=== PATIENT | female | born 1955 | race Caucasian/White ===

== ENCOUNTER → 2019-01-21 15:04 | Outpatient (CLI) | payer MEDICARE, SELFPAY ==
--- NOTE | 2019-01-21 | DI.US.S_ITS ---
PROCEDURE: US RENAL COMPLETE INDICATIONS: CHRONIC KIDNEY DISEASE STAGE 3 TECHNIQUE: Real-time scanning was performed of the kidneys and bladder, with image documentation. COMPARISON: None. FINDINGS: Kidneys: Kidneys are normal in size. Right kidney measures 11.5 cm long; left kidney measures 11.2 cm long. Right renal cortical thickness is 0.8; left renal cortical thickness is 1.4 cm. Renal cortical echotexture is normal. No hydronephrosis or nephrolithiasis. No suspicious solid mass lesions. Bladder: Pre-void bladder volume is 81 mL. Post-void residual is 68 mL. Pre-void images demonstrate no intraluminal masses or stones. On pre-void images, the right ureteral jet noted with color Doppler interrogation. (Of note, ureteral jets may not be detectable in up to 25% of cases due to insufficient differences in specific gravity between ureteral and bladder urine). Miscellaneous: No free pelvic fluid. IMPRESSION: No hydronephrosis. 68 cc post void residual. Dictated by: Jh Franklin M.D. on 01/21/2019 at 16:49 Approved by: Jh Franklin M.D. on 01/21/2019 at 16:51
== END ==
PROVIDERS: PCP Family Medicine; Visit Provider Student in an Organized Health Care Education/Training Program
DX: N18.3 Chronic kidney disease, stage 3 (moderate) (principal)
CPT/HCPCS: 76770

== ENCOUNTER → 2019-09-10 07:40 | Outpatient (CLI) | payer MEDICARE, SELFPAY ==
[2019-09-10 08:55] LABS: Alanine Aminotransferase 26 IU/L (<35); Aspartate Aminotransferase 36 IU/L (14-36); Cholesterol 128 mg/dL (140-199); Triglycerides 100 mg/dL (35-150)
[2019-09-10 12:33] LABS: HDL Cholesterol 64 mg/dL (40-60); LDL Cholesterol Calculated 44 mg/dL (<100)
== END ==
PROVIDERS: PCP Internal Medicine; Referring Provider Internal Medicine; Visit Provider Internal Medicine
DX: E78.5 Hyperlipidemia, unspecified (principal)
CPT/HCPCS: 36415; 80061; 84450; 84460

== ENCOUNTER → 2020-02-14 14:49 | Outpatient (CLI) | payer MEDICARE, SELFPAY ==
--- NOTE | 2020-02-14 | DI.ECHO.S_ITS ---
[facility]---------+ [facility] +---------+ : : [address] : [place] : : : : [id number] : : : : Phone: [phone] Echocardiogram Report + + :Name: NESSA ANDRES Study Date: 02/14/2020 Height: 63 in : :[facility] Exam Location: IS Weight: 220 lb : : Gender: Female BSA: 2.0 m2 : :: 1955 Age: 65 yrs BP: 147/87 mmHg: :Reason For Study: Mitral Valve- Regurgitation : :Ordering Physician: Emeterio Conti M.D. : :Александрiwal Performed By: Bridget Page : + + Interpretation Summary The left ventricle is mildly dilated. The ejection fraction is estimated to be 55-60%. There has been no significant change in LV EF since the previous exam. The right ventricle is normal in size and function. There is mild mitral regurgitation. Compared to the prior echo study, there has been a decrease in the severity of mitral regurgitation. There is mild tricuspid regurgitation. Compared to the prior echo exam, there has been no change in TR severity. The right ventricular systolic pressure is estimated to be at least 31 mmHg based on an estimated right atrial pressure of 8 mm Hg. Procedure: A two-dimensional transthoracic echocardiogram with color flow and Doppler was performed. The study quality was technically adequate. Comparison is made with the echocardiogram of 07/06/2016. The heart rate ranged between 55-70 bpm during the study. The patient had frequent PVCs during the exam. The patient was in normal sinus rhythm during the exam. Left Ventricle: The left ventricle is mildly dilated. There is no thrombus. The ejection fraction is estimated to be 55-60%. There has been no significant change since the previous exam. There is a significant dyssynchronous contraction pattern, consistent with a conduction abnormality. Diastolic function could not be accurately assessed due to unobtainable data. Right Ventricle: The right ventricle is normal in size and function. Atria: The left atrium is severely dilated. The left atrium has significantly increased in size since the prior echo exam. The right atrium is mildly dilated. There is no Doppler evidence for an interatrial shunt. Mitral Valve: The mitral valve leaflets appear mildly thickened, but open well. There is mild mitral annular calcification. The mitral valve chordae are thickened and/or calcified. There is mild mitral regurgitation. Compared to the prior echo study, there has been a decrease in the severity of mitral regurgitation. Aortic Valve: The aortic valve is trileaflet. The aortic valve opens well. There is no aortic valve stenosis. No aortic regurgitation is present. Tricuspid Valve: The tricuspid valve is normal. There is mild tricuspid regurgitation. The right ventricular systolic pressure is estimated to be at least 31 mmHg based on an estimated right atrial pressure of 8 mm Hg. Compared to the prior echo exam, there has been no change in TR severity. Pulmonic Valve: The pulmonic valve is not well visualized. There is mild pulmonic regurgitation. Great Vessels: The aortic root is normal size. The ascending aorta is normal in size. The pulmonary artery is not well visualized, but is probably normal size. The IVC is dilated (diameter is greater than 2.1 cm) yet it collapses greater than 50% with a sniff. This suggests a right atrial pressure of 8 mm Hg. Pericardium/ Pleura There is no pericardial effusion. There is no pleural effusion. MMode/2D Measurements & Calculations LVIDd: 5.7 cm LVOT diam: 2.2 cm LVIDs: 4.0 cm Ao root diam: 3.3 cm FS: 29.8 % asc Aorta Diam: 3.3 cm IVSd: 1.0 cm LVPWd: 0.77 cm LV malone. diameter/BSA (cm/m^2): 2.8 LV sys. diameter/BSA (cm/m^2): 2.0 LA A2 area: 27.8 cm2 RA long axis: 5.3 cm LA A4 area: 25.7 cm2 RA area: 19.6 cm2 LA length (vol): 5.9 cm RA vol: 62.3 ml LA vol: 102.8 ml RA : 30.9 ml/m2 LA vol index: 51.0 ml/m2 IVC diam: 2.4 cm RVD1 (basal): 3.8 cm TAPSE: 2.0 cm Doppler Measurements & Calculations Ao V2 max: 135.5 cm/sec LVOT Max Russel: 105.9 cm/sec Ao V2 mean: 91.2 cm/sec LV V1 max P.5 mmHg Ao max P.3 mmHg LV V1 VTI: 24.2 cm Ao mean P.7 mmHg DEVI(I,D): 3.1 cm2 Ao V2 VTI: 30.6 cm DEVI(V,D): 3.1 cm2 sev ratio: 0.79 DEVI indexed to BSA (cm^2/m^2): 1.5 TR max russel: 240.8 cm/sec SV(LVOT): 94.8 ml TR max P.3 mmHg PA V2 max: 91.5 cm/sec PA V2 mean: 63.5 cm/sec PA mean P.8 mmHg PA Accel Time: 0.07 sec Reading Physician:12:46 PM
== END ==
PROVIDERS: PCP Internal Medicine; Referring Provider Internal Medicine Cardiovascular Disease; Visit Provider Internal Medicine Cardiovascular Disease
DX: I08.1 Rheumatic disorders of both mitral and tricuspid valves (principal)
CPT/HCPCS: 93306

== ENCOUNTER → 2020-04-27 12:51 | Outpatient (CLI) | payer MEDICARE, SELFPAY ==
--- NOTE | 2020-04-27 12:54 | DI.RAD.S_ITS ---
PROCEDURE: XR DEXA AXIAL SKELETON INDICATIONS: Asymptomatic menopausal state COMPARISON: None. FINDINGS: This blank DEXA report has been sent in error by the PACS system. The correct and complete report will be forthcoming in 1-2 days. Thank you for your patience and understanding. Dictated by: Olive Rolon MD, PhD on 04/27/2020 at 17:09 Approved by: Olive Rolon MD, PhD on 04/27/2020 at 17:09
== END ==
PROVIDERS: PCP Internal Medicine; Referring Provider Internal Medicine; Visit Provider Internal Medicine
DX: Z78.0 Asymptomatic menopausal state (principal); E07.9 Disorder of thyroid, unspecified; E11.9 Type 2 diabetes mellitus without complications; N28.9 Disorder of kidney and ureter, unspecified
CPT/HCPCS: 77080

== ENCOUNTER → 2020-05-13 13:03 | Outpatient (CLI) | payer MEDICARE, SELFPAY ==
[2020-05-13] MEDS: COVID-19 VACC #1, MRNA(MOD) 100 MCG/0.5 ML VIAL IM (13:13)
== END ==
PROVIDERS: PCP Internal Medicine; Visit Provider Internal Medicine
DX: Z23 Encounter for immunization (principal)
CPT/HCPCS: 0011A; 91301

== ENCOUNTER → 2020-06-10 12:32 | Outpatient (CLI) | payer MEDICARE, SELFPAY ==
[2020-06-10] MEDS: COVID-19 VACC #2, MRNA(MOD) 100 MCG/0.5 ML VIAL IM (12:39)
== END ==
PROVIDERS: PCP Internal Medicine; Visit Provider Internal Medicine
DX: Z23 Encounter for immunization (principal)
CPT/HCPCS: 0012A; 91301

== ENCOUNTER → 2020-09-15 07:05 | Outpatient (CLI) | payer MEDICARE, SELFPAY ==
[2020-09-15 08:27] LABS: HEMOLYSIS < 15 (0-50); Potassium 4.8 mmol/L (3.4-5.1)
== END ==
PROVIDERS: PCP Internal Medicine; Referring Provider Student in an Organized Health Care Education/Training Program; Visit Provider Student in an Organized Health Care Education/Training Program
DX: E87.5 Hyperkalemia (principal)
CPT/HCPCS: 36415; 84132

== ENCOUNTER 2021-09-14 15:19 | Emergency (ER) | payer MEDICARE, SELFPAY ==
[2021-09-14 15:44] VITALS: BP 192/74; PULSE 60; RESP 18; TEMP 37.1; O2SAT 99; BMI 37.0
--- NOTE | 2021-09-14 15:48 | DI.RAD.S_ITS ---
PROCEDURE: XR SKULL<4V INDICATIONS: Small indentation to R forehead after hitting head on beam TECHNIQUE: 3view(s) of the skull acquired. COMPARISON: None. FINDINGS: Bones: No fractures. No suspicious bony lesions. Visualized sinuses appear clear. No displaced or disc breast calvarial fracture. Soft tissues: No soft tissue calcifications. No suspicious soft tissue densities. IMPRESSION: No displaced or depressed calvarial fracture. Dictated by: Olive Rolon MD, PhD on 09/14/2021 at 16:40 Approved by: Olive Rolon MD, PhD on 09/14/2021 at 16:48
--- NOTE | 2021-09-14 18:30 | DI.CT.S_ITS ---
PROCEDURE: CT HEAD/BRAIN WO CON INDICATIONS: hit head, palpable indent in skull TECHNIQUE: Noncontrast 4.5 mm thick angled axial sections acquired from the foramen magnum to the vertex, with coronal and sagittal reformats. For radiation dose reduction, the following was used: automated exposure control, adjustment of mA and/or kV according to patient size. COMPARISON: None. FINDINGS: Image quality: Excellent. CSF spaces: Basal cisterns are patent. No extra-axial fluid collections. The ventricles are symmetric in size and shape. Brain: No intracranial bleeds. There is a 2.6 x 2.5 x 2.5 centimeter partially calcified, slightly hyperdense left posterior fossa mass. Lesion appears extra-axial and involves the left ala of the tentorium. Lesion causes mild mass effect on the left cerebellar hemisphere. No edema identified in left cerebellar hemisphere. There is cerebral volume loss for age, with resultant ventricular and sulcal prominence. There are periventricular and deep white matter chronic small vessel ischemic changes. There is intracranial internal carotid artery atherosclerosis. Skull and face: Calvarium and visualized facial bones appear intact, without suspicious lesions. Sinuses: Visualized sinuses and mastoids are clear. IMPRESSION: 1. No acute intracranial disease process. 2. No intracranial hemorrhage. 3. No fracture. 4. 2.6 x 2.5 x 2.5 centimeter left posterior fossa partially calcified extra-axial mass. Lesion has imaging characteristics most concerning for meningioma. Recommend non emergent MRI of the brain with and without contrast for definitive characterization. Dictated by: Olive Rolon MD, PhD on 09/14/2021 at 19:04 Approved by: Olive Rolon MD, PhD on 09/14/2021 at 19:07
--- NOTE | 2021-09-14 19:22 | ED_ITS ---
HPI - Head Injury General Chief complaint: Head Injury Stated complaint: Head injury Time Seen by Provider: 09/14/21 18:30 Source: patient and family Mode of arrival: Ambulatory History of Present Illness HPI Narrative: 58-year-old woman with minimal medical history was doing some gardening work under her deck stood up and hit the right top of her head on the edge of 1 of the large support beams. She did not lose consciousness she is not complaining of a headache. She notes that she does have some minor neck pain but it is not any different from her baseline neck pain. There is no abrasion or contusion and no bleeding however there is a palpable dent in her skull there is approximately 2 cm x 1 cm that is not painful but was not present prior to the injury. She describes no peripheral paresthesias or weakness. She ambulates without any difficulty. Related Data Allergies Allergy/AdvReac Type Severity Reaction Status Date / Time rofecoxib [From Vioxx] Allergy Intermediate Hives Verified 09/14/21 15:47 adhesive tape AdvReac Intermediate Rash Verified 09/14/21 15:47 Review of Systems Review of Systems Narrative: Remainder of complete review of systems is otherwise unremarkable except for that included in the HPI. Patient History Social History Smoking Status: Never smoker Smoking Status: Never smoker alcohol intake frequency: 0-2 drinks per day Substance Use Type: does not use Exam Initial Vital Signs Initial Vital Signs: Vital Signs Temperature 98.7 F 09/14/21 15:44 Pulse Rate 60 09/14/21 15:44 Respiratory Rate 18 09/14/21 15:44 Blood Pressure 192/74 H 09/14/21 15:44 Pulse Oximetry 99 09/14/21 15:44 General: Healthy appearing, in no acute distress. Able to give a complete and coherent history. Well-nourished well-developed HEENT: Moist mucous membranes, normal sclera with reactive pupils, there is a palpable skull indention 3 cm x 1 cm right side of her head chest past her hairline. No associated abrasions contusions or hematomas Neck: No midline cervical spine tenderness supple Respiratory: Lungs are clear to auscultation, no wheezing no rales no rhonchi. Full and symmetrical air movement Cardiac: Regular rate and rhythm no murmurs no bruits Skin: Warm and dry, no rashes Neurologic: Grossly neurologically intact with no obvious asymmetries or abnor malities Extremities: No trauma, well perfused Psych: Cooperative, appropriate insight and affect Course Orders Ordered: ED Orders 09/14/21 15:48 XR skull <4V Stat 09/14/21 18:30 CT head/brain wo con Stat Vital Signs Vital signs: Vital Signs - 8 hr 09/14/21 15:44 Temperature 98.7 F Pulse Rate 60 Respiratory Rate 18 Blood Pressure 192/74 H Pulse Oximetry 99 MDM - Head Injury Imaging Data CT scan - head: Radiologist's Impression: FINDINGS:? Image quality:? Excellent.? ? CSF spaces:? Basal cisterns are patent.? No extra-axial fluid collections.? The ventricles are symmetric in size and shape.? ? Brain:? No intracranial bleeds.? There is a 2.6 x 2.5 x 2.5 centimeter partially calcified, slightly hyperdense left posterior fossa mass.? Lesion appears extra- axial and involves the left ala of the tentorium.? Lesion causes mild mass effect on the left cerebellar hemisphere.? No edema identified in left cerebellar hemisphere.? There is cerebral volume loss for age, with resultant ventricular and sulcal prominence.? There are periventricular and deep white matter chronic small vessel ischemic changes.? There is intracranial internal carotid artery atherosclerosis.? ? Skull and face:? Calvarium and visualized facial bones appear intact, without s uspicious lesions.? ? Sinuses:? Visualized sinuses and mastoids are clear.? ? ? IMPRESSION:? ? 1. No acute intracranial disease process.? ? 2. No intracranial hemorrhage. ? 3. No fracture. ? 4. 2.6 x 2.5 x 2.5 centimeter left posterior fossa partially calcified extra- axial mass.? Lesion has imaging characteristics most concerning for meningioma.? Recommend non emergent MRI of the brain with and without contrast for definitive characterization. ? ? ? Dictated by: Olive Rolon MD, PhD on 09/14/2021 at 19:04? ?? X-ray skull: Radiologist's Impression: FINDINGS:? ? Bones:? No fractures.? No suspicious bony lesions.? Visualized sinuses appear clear.? No displaced or disc breast calvarial fracture.? ? Soft tissues:? No soft tissue calcifications.? No suspicious soft tissue densities.? ? IMPRESSION:? No displaced or depressed calvarial fracture. ? ? Dictated by: Olive Rolon MD, PhD on 09/14/2021 at 16:40? ?? MDM Narrative Medical decision making narrative: 66-year-old woman with trauma to the top of her head with palpable and in to the bone and no other abrasion. Skull x-rays are unremarkable however on clinical exam the indent is rather impressive. CT scan was ordered and again does not show skull fracture or intracranial bleeding. She does have an incidentally appreciated 2.6 x 2.5 x 2.5 centimeter left posterior fossa partially calcified extra- axial mass.? Lesion has imaging characteristics most concerning for meningioma.? Recommend non emergent MRI of the brain with and without contrast Discharge Plan Departure Patient Disposition: Home Clinical Impression: Meningioma Closed head injury Qualifiers: Encounter type: initial encounter Qualified Code(s): S09.90XA - Unspecified injury of head, initial encounter Instructions: DI for Closed Head Injury Activity Restrictions/Additional Instructions: Thank you for coming in today You do have quite that indent in your skull however the x-ray and CT scan of your head do not show underlying fracture or bleeding inside your skull or your brain. The CT scan did show an incidental finding of what looks like meningioma. These are typically found accidentally when looking for other things on CT scans. They generally have a very good prognosis but do need to have some follow-up. When they cause problems typically because they are growing and pushing on an important part of your brain. Please follow-up with your primary care physician regarding the incidental melanoma. Using 400 mg of ibuprofen (2 [id number] pills) and 1 Tylenol every 6 hours can be very helpful in controlling pain if you do notice that your head and neck are tender after your incident today. Thank you for your wait today and I wish you the best. Referrals: Laila Beck MD [Primary Care Provider] -
[2021-09-14 19:45] VITALS: BP 177/82; PULSE 70; RESP 19; O2SAT 97
== END 2021-09-14 19:46 | disposition home or self-care (01) ==
PROVIDERS: Emergency Provider Emergency Medicine; PCP Internal Medicine
DX: S09.90XA Unspecified injury of head, initial encounter (principal); D32.9 Benign neoplasm of meninges, unspecified; M54.2 Cervicalgia; W22.8XXA Striking against or struck by other objects, initial encounter
CPT/HCPCS: 70250; 70450; 99281; 99283

== ENCOUNTER → 2021-10-04 13:01 | Outpatient (CLI) | payer MEDICARE, SELFPAY ==
--- NOTE | 2021-10-04 | DI.MRI.S_ITS ---
PROCEDURE: MR HEAD/BRAIN WO/W CON INDICATIONS: HEADACHE/MENINGIOMA TECHNIQUE: Noncontrast axial T1 spin echo, axial T2 fast spin echo, sagittal and axial FLAIR, coronal T2 fast spin echo, axial gradient echo, axial diffusion and ADC through the brain. After the administration of contrast, axial and coronal and sagittal 3D VIBE or T1 spin echo with fat saturation through the brain. COMPARISON: [facility], CT, CT HEAD/BRAIN WO CON, 09/14/2021, 18:31. FINDINGS: Image quality: Excellent. CSF Spaces: Basal cisterns are patent. No extra-axial fluid collections. Ventricles are normal in size and shape. Brain: No midline shift. There is a 2.8 x 2.5 x 2.5 cm enhancing mass within the left cerebellum. It appears extra-axial in location. No vasogenic edema is identified. There are focal areas of hypointensity on gradient sequence. This appears to correspond to areas of calcification identified on CT. The brainstem appears normal. Diffusion-weighted images demonstrate no acute ischemic insults. No chronic ischemic insults. Normal intravascular flow voids are present. Skull and face: Calvarial marrow is normal in signal. Orbits appear normal. Sinuses: Sinuses and mastoids appear clear. IMPRESSION: Enhancing mass without vasogenic edema within the left cerebellum appearing suggestive of meningioma. It appears unchanged in size compared to 09/14/2021. Dictated by: Nereida Wong M.D. on 10/04/2021 at 16:39 Approved by: Nereida Wong M.D. on 10/04/2021 at 16:41
== END ==
PROVIDERS: PCP Internal Medicine; Referring Provider Internal Medicine; Visit Provider Internal Medicine
DX: D32.9 Benign neoplasm of meninges, unspecified (principal); R51.9 Headache, unspecified
CPT/HCPCS: 70553; A9579

== ENCOUNTER → 2024-01-22 07:53 | Outpatient (CLI) | payer MEDICARE, SELFPAY ==
--- NOTE | 2024-01-22 07:55 | DI.ECHO.S_ITS ---
[facility] : : [address] : : [place] : : [id number] : : Phone: [phone] Echocardiogram Report + + :Name: NESSA ANDRES Study Date: 01/22/2024 Height: 63 in : :[facility] ReadingLocation: Weight: 210 lb : : Gender: Female BSA: 2.0 m2 : :: 1955 Age: 68 yrs BP: 140/69 mmHg: :Reason For Study: Mitral Valve- Regurgitation : :Ordering Physician: MARLON, : :GIOVANNI Sauer Performed By: Nancy Christie : :Referring: GIOVANNI MASON : + + Interpretation Summary Borderline concentric left ventricular hypertrophy with ejection fraction 55- 60%. Diastolic parameters suggest a relaxation abnormality of the left ventricle, consistent with probable normal filling pressures. Mild aortic valve sclerosis. Mild mitral annular calcification. Comparison is made with the echocardiogram of 05/13/2016, mitral regurgitation has decreased. Procedure: A two-dimensional transthoracic echocardiogram with color flow and Doppler was performed. The study quality was technically adequate. Comparison is made with the echocardiogram of 05/13/2016. The patient was in sinus rhythm with heart rates between 60-81 bpm during the exam. The patient had frequent PVCs during the exam. Left Ventricle: The left ventricle is normal in size. There is borderline concentric left ventricular hypertrophy. The ejection fraction is estimated to be 55-60%. There are no obvious focal wall motion abnormalities noted but poor endocardial definition reduces the sensitivity for the detection of such. Diastolic parameters suggest a relaxation abnormality of the left ventricle, consistent with probable normal filling pressures. Right Ventricle: The right ventricle is normal in size and function. Atria: Both atria are normal in size. There is no Doppler evidence for an interatrial shunt. Mitral Valve: The mitral valve leaflets appear normal. There is no evidence of stenosis, fluttering, or prolapse. There is mild mitral annular calcification. The mitral papillary muscle appears thickened and/or calcified. There is trace mitral regurgitation. Aortic Valve: The aortic valve is trileaflet. The aortic valve opens well. There is mild aortic valve sclerosis. There is no aortic valve stenosis. No aortic regurgitation is present. Tricuspid Valve: The tricuspid valve leaflets are thin and pliable. There is a trace or physiologic amount of tricuspid regurgitation. The right ventricular systolic pressure is estimated to be at least 16 mmHg based on an estimated right atrial pressure of 3 mm Hg. Pulmonic Valve: The pulmonic valve leaflets are thin and pliable; valve motion is normal. There is a trace or physiologic amount of pulmonic regurgitation. Great Vessels: The aortic root is normal size. The ascending aorta is normal in size. The aortic arch is normal in size. The pulmonary artery is not well visualized, but is probably normal size. The IVC is of normal diameter and collapses greater than 50% with a sniff. This suggests a low right atrial pressure of 3 mm Hg. Pericardium/ Pleura There is no pericardial effusion. There is no pleural effusion. MMode/2D Measurements & Calculations LVIDd: 5.0 cm LVOT diam: 2.0 cm LVIDs: 3.7 cm Ao root diam: 3.2 cm FS: 27.3 % asc Aorta Diam: 3.1 cm EPSS: 0.52 cm IVSd: 1.1 cm LVPWd: 1.2 cm LV malone. diameter/BSA (cm/m^2): 2.6 LV sys. diameter/BSA (cm/m^2): 1.9 LA A2 area: 19.8 cm2 RA long axis: 5.5 cm LA A4 area: 22.3 cm2 RA area: 17.0 cm2 LA length (vol): 6.0 cm RA vol: 44.5 ml LA vol: 62.3 ml RA : 22.6 ml/m2 LA vol index: 31.6 ml/m2 IVC diam: 2.1 cm RVD1 (basal): 3.2 cm TAPSE: 2.2 cm Doppler Measurements & Calculations Ao V2 max: 125.2 cm/sec LVOT Max Russel: 99.3 cm/sec Ao V2 mean: 88.4 cm/sec LV V1 max P.9 mmHg Ao max P.3 mmHg LV V1 VTI: 23.9 cm Ao mean P.5 mmHg DEVI(I,D): 2.3 cm2 Ao V2 VTI: 32.3 cm DEVI(V,D): 2.5 cm2 sev ratio: 0.74 DEVI indexed to BSA (cm^2/m^2): 1.2 MV E max russel: 79.6 cm/sec TR max russel: 179.7 cm/sec MV A max russel: 98.3 cm/sec TR max P.3 mmHg MV E/A: 0.81 PA pr(Accel): 19.1 mmHg Med Peak E' Russel: 5.2 cm/sec E/E' med: 15.2 Lat Peak E' Russel: 6.1 cm/sec E/E' lat: 13.2 E/e' average: 14.2 MV dec time: 0.25 sec MVA(VTI): 1.6 cm2 MV V2 mean: 66.9 cm/sec SV(LVOT): 74.1 ml MV mean P.0 mmHg MV V2 VTI: 45.0 cm Electronically signed by: Rakel Hansen on Reading Physician:01/22/2024 11:21 AM
== END ==
PROVIDERS: PCP Internal Medicine; Referring Provider Nurse Practitioner; Visit Provider Nurse Practitioner
DX: I34.81 Nonrheumatic mitral (valve) annulus calcification (principal); I35.8 Other nonrheumatic aortic valve disorders
CPT/HCPCS: 93306

== ENCOUNTER → 2024-07-30 12:27 | Outpatient (CLI) | payer MEDICARE, SELFPAY ==
--- NOTE | 2024-07-30 12:31 | DI.RAD.S_ITS ---
PROCEDURE: XR HAND RT MIN 3V INDICATIONS: RT HAND PAIN TECHNIQUE: 3 views of the hand(s) acquired. COMPARISON: None. FINDINGS: Bones: There are no osseous abnormalities Joints: Mild degenerative change present distal radial ulnar and STT joint. Moderate 1st CMC degeneration noted. There is also moderate degeneration in all interphalangeal joints. Soft tissues: No soft tissue abnormality. IMPRESSION: Multilevel degeneration. Dictated by: Michael Rush M.D. on 07/31/2024 at 11:26 Approved by: Michael Rush M.D. on 07/31/2024 at 11:28
== END ==
LOC: RAD 12:29
PROVIDERS: PCP Internal Medicine; Referring Provider Internal Medicine; Visit Provider Internal Medicine
DX: M18.11 Unilateral primary osteoarthritis of first carpometacarpal joint, right hand (principal); M19.041 Primary osteoarthritis, right hand; M79.641 Pain in right hand
CPT/HCPCS: 73130

== ENCOUNTER → 2025-03-27 07:02 | Outpatient (CLI) | payer MEDICARE, SELFPAY ==
[2025-03-27 07:50] LABS: Hematocrit 30.5 % (36-46); Hemoglobin 10.7 g/dL (12.0-16.0)
[2025-03-27 08:15] LABS: Blood Urea Nitrogen 32 mg/dL (7-17); Calcium 9.0 mg/dL (8.4-10.2); Carbon Dioxide 24 mmol/L (22-32); Chloride 105 mmol/L (98-107); Estimated Glomerular Filt Rate 35 mL/min (>60); Glucose 109 mg/dL (70-99); HEMOLYSIS < 15 (0-50); Potassium 5.0 mmol/L (3.4-5.1); Sodium 140 mmol/L (137-145)
[2025-03-27 08:22] LABS: Protein (Total) Urine Random < 5 mg/dL (0-12); Protein Creatinine Ratio Urine 0.06 GRAM/24H
== END ==
PROVIDERS: PCP Internal Medicine; Referring Provider Student in an Organized Health Care Education/Training Program; Visit Provider Student in an Organized Health Care Education/Training Program
DX: D70.9 Neutropenia, unspecified (principal); D63.1 Anemia in chronic kidney disease; N05.9 Unspecified nephritic syndrome with unspecified morphologic changes; R80.9 Proteinuria, unspecified
CPT/HCPCS: 36415; 80048; 82570; 83970; 84156; 85014; 85018